=== PATIENT | male | born 1935 | race Caucasian/White ===

== ENCOUNTER 2017-05-22 07:06 | Day surgery (SDC) ==
[2017-05-22] MEDS: LIDOCAINE 1% 20 ML MDV ID ONE (08:05)
[2017-05-22] MEDS ORDERED: DIPRIVAN 20 ML VIAL IVP ONE (08:30)
[2017-05-22] MEDS ORDERED: VERSED ONE (08:30)
[2017-05-22 14:23] VITALS: BP 156/70; TEMP 97.7
--- NOTE | 2017-05-22 15:11 | OP ---
INDICATIONS FOR PROCEDURE: 82-year-old gentleman presents for colonoscopy examination. He has a past history of adenomatous polyps with his last colonoscopy three years ago. MEDICATIONS: SEE ANESTHESIA NOTES. PROCEDURE: COLONOSCOPY, SNARE POLYPECTOMY. REPORT: The risks, benefits, alternatives and limitations were discussed in detail with the patient. Informed consent was obtained. After adequate sedation was achieved, a digital rectal exam revealed good tone, no masses. The colonoscope was introduced into the rectum and advanced under direct visual guidance to the ileocolonic anastomosis. This appeared unremarkable. I then slowly withdrew the scope in a circumferential manner examining the mucosa quite carefully. I looked on the proximal and distal side of folds and flexures as best as possible. I was able to retroflex the scope in the right colon and left colon to increase visualization. At 32 cm there was a semi sessile polyp, about 7 mm in size. I was able to remove this by snare technique. No other abnormalities were noted throughout the remaining colon. The prep was good. The withdrawal time was 9 minutes and 14 seconds. The patient tolerated the procedure well with stable vital signs and pulse oximetry throughout. IMPRESSION: 1. Single polyp removed from the sigmoid area. RECOMMENDATIONS: 1. High fiber diet. 2. Office visit as needed. 3. Await polyp pathology. If everything is benign, I recommend repeat colonoscopy examination again in three years based on his past history of polyps and finding this polyp; sooner if there are any signs or symptoms to indicate otherwise. CC: DR. ANTHONY LINARES
== END 2017-05-22 10:15 | disposition home or self-care (01) ==
LOC: SURG 07:06
PROVIDERS: ATTEND Internal Medicine Gastroenterology
DX: Z09 Encounter for follow-up examination after completed treatment for conditions other than malignant neoplasm (principal); Z86.010 Personal history of colon polyps; D12.5 Benign neoplasm of sigmoid colon

== ENCOUNTER 2019-04-30 09:50 | Outpatient (POV) | END 2019-04-30 17:00 | LOC: OUTPT 09:50 | PROVIDERS: ATTEND Otolaryngology | DX: R42 Dizziness and giddiness (principal) | CPT/HCPCS: 92557; 92567 ==

== ENCOUNTER 2021-05-15 22:04 | Inpatient (IN) ==
[2021-05-15 22:14] VITALS: BMI 25.4
[2021-05-15 22:34] LABS: BASOPHILS % (AUTO) 0.6 % (0.0-3.0); EOSINOPHILS # (AUTO) 0.3 K/ul (0.0-0.7); EOSINOPHILS % (AUTO) 4.3 % (0.0-7.0); HEMATOCRIT 40.9 % (42.0-52.0); HEMOGLOBIN 14.3 g/dl (14.0-18.0); IMMATURE GRANULOCYTE % (AUTO) 0.1 % (0.0-5.0); LYMPHOCYTES # (AUTO) 2.8 K/uL (0.60-3.4); LYMPHOCYTES % (AUTO) 41.8 (10.0-50.0); MEAN CORPUSCULAR HEMOGLOBIN 30.4 pg (27.0-31.0); MONOCYTES # (AUTO) 0.7 K/uL (0.4-2.0); MONOCYTES % (AUTO) 9.9 (0-10); NEUTROPHILS # (AUTO) 2.9 K/ul (2.0-6.9); NEUTROPHILS % (AUTO) 43.3 % (42.2-75.2); PLATELET COUNT 170 10^3/uL (140-440); RDW COEFFICIENT OF VARIATION 12.8 % (11.6-14.8); WHITE BLOOD COUNT 6.68 K/ul (4.2-10.2)
--- NOTE | 2021-05-15 22:51 | ED.PDOC ---
General ED Provider: Dr. ANA PAULA CARRASQUILLO Chief Complaint: Palpitations Stated Complaint: my heart is beating irregular and im tired Time Seen by Provider: 05/15/21 22:25 Mode of Arrival: Walk-In Information Source: Patient Exam Limitations: No limitations Primary Care Provider: TIFFANIE OCONNOR Nursing and Triage Documentation Reviewed and Agree: Yes Does patient meet sepsis criteria?: No System Inflammatory Response Syndrome: Not Applicable Sepsis Protocol: For patient's 13 years and over: Temp is 96.8 and below OR 101 and greater Pulse >90 BPM Resp >20/minute Acutely Altered Mental Status Are patient's symptoms suggestive of a new infection, such as: -Pneumonia -Skin, Soft Tissue -Endocarditis -UTI -Bone, Joint Infection -Implantable Device -Acute Abdominal Infection -Wound Infection -Meningitis -Blood Stream Catheter Infection -Unknown Cardiovascular Complaint Exam Palpitations Complaint/Exam Onset/Duration: 2-3 days Symptoms Are: Still present Timing: Intermittent Initial Severity: Mild Current Severity: Mild Character: Reports Irregular and Pounding Aggravating: Reports None Alleviating: Reports None Associated Signs and Symptoms: Denies Lightheadedness, Dizziness, Syncope, Chest pain, Shortness of breath, Diaphoresis, Nausea or Vomiting Thyroid Exam: Normal Differential Diagnoses: Cardiomyopathy and CAD Quality Indicator For Non-Traumatic Chest Pain/Syncope: EKG Performed Review of Systems Review Of Systems Constitutional: Reports No symptoms Eyes: Reports No symptoms Ears, Nose, Mouth, Throat: Reports No symptoms Respiratory: Reports No symptoms Cardiac: Reports Palpitations GI: Reports No symptoms : Reports No symptoms Musculoskeletal: Reports No symptoms Skin: Reports No symptoms Neurological: Reports No symptoms Endocrine: Reports No symptoms Hematologic/Lymphatic: Reports No symptoms All Other Systems: Reviewed and Negative [facility] Medical History Gastroesophageal reflux disease Hyperlipidemia Hypertension Surgical History (Updated 04/30/19 @ 12:10 by ZEYAD RICE LPN) Large intestines Physical Exam Physical Exam Appearance: Reports Well-appearing Ill-appearing: Not Applicable Pain Distress: Not Applicable Eyes: Reports SANDRA, EOMI and Conjunctiva clear ENT: Reports Ears normal, Nose normal and Oropharynx normal Neck: Supple Respiratory: Reports Airway patent, Breath sounds clear, Breath sounds equal and Breath sounds diminished Cardiovascular: Reports RRR, Pulses normal and No rub GI/: Reports Soft, Nontender, No masses and Bowel sounds normal Musculoskeletal: Reports Normal strength, ROM intact, No edema and No calf tenderness Skin: Reports Warm, Dry and Normal color Neurological: Reports Sensation intact, Motor intact, Reflexes intact, Cranial nerves intact, Alert and Oriented Psychiatric: Reports Affect appropriate, Mood appropriate and Anxious Physician Notification Case Discussed Physician Notified: dr oconnor Time of Notification: 23:51 Critical Care Note Critical Care Note Total Critical Care Time (mins): 15 Course Course Hematology/Chemistry: 05/15/21 22:30 05/15/21 22:30 Orders, Labs, Meds: Lab Review 05/15/21 05/15/21 05/15/21 22:30 22:30 22:30 WBC 6.68 RBC 4.70 Hgb 14.3 Hct 40.9 L MCV 87.0 MCH 30.4 MCHC 35.0 RDW Coeff of Kassandra 12.8 Plt Count 170 Immature Gran % (Auto) 0.1 Neut % (Auto) 43.3 Lymph % (Auto) 41.8 [place] % (Auto) 9.9 Eos % (Auto) 4.3 Baso % (Auto) 0.6 Neut # (Auto) 2.9 Lymph # (Auto) 2.8 [place] # (Auto) 0.7 Eos # (Auto) 0.3 Baso # (Auto) 0.0 Immature Gran # (Auto) 0.0 Sodium 141.5 Potassium 3.51 Chloride 103.8 Carbon Dioxide 27.4 Anion Gap 13.81 BUN 20.5 H Creatinine 1.31 H Estimated GFR (MDRD) 52.00 BUN/Creatinine Ratio 15.64 Glucose 140.3 H Calcium 9.44 Magnesium 2.22 Total Bilirubin 0.72 AST 29.7 ALT 15.4 Alkaline Phosphatase 86.4 Total Creatine Kinase 80.6 Troponin I 0.030 Total Protein 6.93 Albumin 4.14 Globulin 2.79 Albumin/Globulin Ratio 1.48 TSH 3.710 Free T4 1.49 Adenovirus (PCR) B. pertussis DNA (PCR) B.parapertussis DNA PCR C. pneumoniae DNA (PCR) Coronavirus OC43 (PCR) Coronavirus HKU1 (PCR) Coronavirus 229E (PCR) Coronavirus NL63 (PCR) Human Metapneumovir PCR Influenza Type A (PCR) Influenza B (RT-PCR) M. pneumoniae (PCR) Parainfluenza 1 (PCR) Parainfluenza 2 (PCR) Parainfluenza 3 (PCR) Parainfluenza 4 (PCR) RSV (PCR) Entero/Rhino (PCR) SARS-CoV-2 (PCR) 05/15/21 22:55 WBC RBC Hgb Hct MCV MCH MCHC RDW Coeff of Kassandra Plt Count Immature Gran % (Auto) Neut % (Auto) Lymph % (Auto) [place] % (Auto) Eos % (Auto) Baso % (Auto) Neut # (Auto) Lymph # (Auto) [place] # (Auto) Eos # (Auto) Baso # (Auto) Immature Gran # (Auto) Sodium Potassium Chloride Carbon Dioxide Anion Gap BUN Creatinine Estimated GFR (MDRD) BUN/Creatinine Ratio Glucose Calcium Magnesium Total Bilirubin AST ALT Alkaline Phosphatase Total Creatine Kinase Troponin I Total Protein Albumin Globulin Albumin/Globulin Ratio TSH Free T4 Adenovirus (PCR) Not detected B. pertussis DNA (PCR) Not detected B.parapertussis DNA PCR Not detected C. pneumoniae DNA (PCR) Not detected Coronavirus OC43 (PCR) Not detected Coronavirus HKU1 (PCR) Not detected Coronavirus 229E (PCR) Not detected Coronavirus NL63 (PCR) Not detected Human Metapneumovir PCR Not detected Influenza Type A (PCR) Not detected Influenza B (RT-PCR) Not detected M. pneumoniae (PCR) Not detected Parainfluenza 1 (PCR) Not detected Parainfluenza 2 (PCR) Not detected Parainfluenza 3 (PCR) Not detected Parainfluenza 4 (PCR) Not detected RSV (PCR) Not detected Entero/Rhino (PCR) Not detected SARS-CoV-2 (PCR) Not detected Orders Category Date Time Status EKG-(ED ONLY) Stat CARDIO 05/15/21 22:23 Completed ED LEASING COORDINATOR APPLIED .ONCE EMERGENCY 05/15/21 22:23 Active CBC W/ AUTO DIFF Stat LAB 05/15/21 22:30 Completed COMPREHENSIVE METABOLIC PANEL Stat LAB 05/15/21 22:30 Completed CREATINE KINASE Stat LAB 05/15/21 22:30 Completed FREE T4 (FREE THYROXINE) Stat LAB 05/15/21 22:30 Completed MAGNESIUM Stat LAB 05/15/21 22:30 Completed RESPIRATORY PANEL 2.1 (PCR) Stat LAB 05/15/21 22:55 Completed THYROID STIMULATING HORMONE Stat LAB 05/15/21 22:30 Completed TROPONIN I Stat LAB 05/15/21 22:30 Completed CHEST, 1V AP ONLY Stat RADS 05/15/21 22:28 Completed Vital Signs: Temp Pulse Resp BP Pulse Ox 05/15/21 22:05 98.3 F 76 18 174/65 H 98 ILEANA Risk Score ILEANA Risk Score: Risk Score Odds of by 30D 0 0.1 (0.1-0.2) 1 0.3 (0.2-0.3) 2 0.4 (0.3-0.5) 3 0.7 (0.6-0.9) 4 1.2 (1.0-1.5) 5 2.2 (1.9-2.6) 6 3.0 (2.5-3.6) 7 4.8 (3.8-6.1) Discharge Plan Discharge Patient Disposition: ADMITTED INPATIENT Discharge Problem: Palpitations Prescriptions: No Action VALIUM 2 MG tablet 2 mg PO BID PRN (Reason: Dizziness) RF: 0 atorvastatin [Lipitor] 20 MG tablet 40 mg PO DAILY RF: 0 aspirin 81 MG tablet,delayed release (DR/EC) 1 tab PO DAILY RF: 0 bisoprolol fumarate 5 MG tablet 2.5 mg PO DAILY RF: 0 amlodipine [Norvasc] 10 MG tablet 1 tab PO DAILY RF: 0 meclizine 25 MG tablet 25 mg PO BID RF: 0 ED Provider: ANA PAULA MARIO Condition: Good Physician Progress Note: []
[2021-05-15 22:53] LABS: ALANINE AMINOTRANSFERASE 15.4 U/L (0-50); ALBUMIN 4.14 g/dL (3.5-5.0); ALKALINE PHOSPHATASE 86.4 U/L (56-119); ASPARTATE AMINO TRANSFERASE 29.7 U/L (17-59); BILIRUBIN,TOTAL 0.72 mg/dL (0.2-1.3); BLOOD UREA NITROGEN 20.5 mg/dL (9-20); CALCIUM 9.44 mg/dL (8.4-10.2); CARBON DIOXIDE 27.4 mmol/L (22-30.0); CHLORIDE 103.8 mmol/L (98-107); CREATINE KINASE 80.6 U/L (55-170); CREATININE 1.31 mg/dL (0.60-1.10); GLUCOSE 140.3 mg/dL (74-106); MAGNESIUM 2.22 mg/dL (1.6-2.3); POTASSIUM 3.51 mmol/L (3.5-5.1); SODIUM 141.5 mmol/L (134.5-145); TOTAL PROTEIN 6.93 g/dL (6.3-8.2)
[2021-05-15 22:59] LABS: BORDETELLA PARAPERTUSSIS (PCR) NOT DETECTED (NOT DETECT); BORDETELLA PERTUSSIS (PCR) NOT DETECTED (NOT DETECT); CHLAMYDIA PNEUMONIAE (PCR) NOT DETECTED (NOT DETECT); CORONAVIRUS 229E (PCR) NOT DETECTED (NOT DETECT); CORONAVIRUS HKU1 (PCR) NOT DETECTED (NOT DETECT); CORONAVIRUS NL63 (PCR) NOT DETECTED (NOT DETECT); CORONAVIRUS OC43 (PCR) NOT DETECTED (NOT DETECT); HUMAN METAPNEUMOVIRUS (PCR) NOT DETECTED (NOT DETECT); HUMAN RHINOVIRUS/ENTEROV (PCR) NOT DETECTED (NOT DETECT); INFLUENZA B (PCR) NOT DETECTED (NOT DETECT); MYCOPLASMA PNEUMONIAE (PCR) NOT DETECTED (NOT DETECT); PARAINFLUENZA VIRUS 1 (PCR) NOT DETECTED (NOT DETECT); PARAINFLUENZA VIRUS 2 (PCR) NOT DETECTED (NOT DETECT); PARAINFLUENZA VIRUS 3 (PCR) NOT DETECTED (NOT DETECT); PARAINFLUENZA VIRUS 4 (PCR) NOT DETECTED (NOT DETECT); RESPIRATORY SYNCYTIAL V (PCR) NOT DETECTED (NOT DETECT); SARS_COV_2 (PCR) NOT DETECTED (NOT DETECT)
[2021-05-15 23:04] LABS: TROPONIN I 0.03 ng/ml (0.0000-0.120)
--- NOTE | 2021-05-15 23:05 | DI ---
EXAM: Chest, one-view HISTORY: Palpitations FINDINGS: Cardiac and mediastinal contours are normal. Pulmonary vasculature is normal. Senescent interstitial coarsening without focal infiltrate. Granulomatous calcification on the left. Bony tho rax is unremarkable. IMPRESSION: No acute cardiopulmonary disease
[2021-05-15 23:23] LABS: THYROID STIMULATING HORMONE 3.71 uIU/L (0.465-4.68)
[2021-05-15 23:43] LABS: ADENOVIRUS (PCR) NOT DETECTED (NOT DETECT)
[2021-05-15] MEDS ORDERED: VALIUM PO PRN (23:58)
[2021-05-16] MEDS ORDERED: NORVASC PO STA (01:19)
[2021-05-16 05:05] LABS: BASOPHILS % (AUTO) 0.7 % (0.0-3.0); EOSINOPHILS # (AUTO) 0.2 K/ul (0.0-0.7); EOSINOPHILS % (AUTO) 3.5 % (0.0-7.0); HEMATOCRIT 38.9 % (42.0-52.0); HEMOGLOBIN 13.3 g/dl (14.0-18.0); IMMATURE GRANULOCYTE % (AUTO) 0.5 % (0.0-5.0); LYMPHOCYTES # (AUTO) 1.9 K/uL (0.60-3.4); LYMPHOCYTES % (AUTO) 31.4 (10.0-50.0); MEAN CORPUSCULAR HEMOGLOBIN 30.1 pg (27.0-31.0); MEAN CORPUSCULAR HGB CONC 34.2 (31.8-35.4); MONOCYTES # (AUTO) 0.7 K/uL (0.4-2.0); MONOCYTES % (AUTO) 12.2 (0-10); NEUTROPHILS # (AUTO) 3.2 K/ul (2.0-6.9); NEUTROPHILS % (AUTO) 51.7 % (42.2-75.2); PLATELET COUNT 165 10^3/uL (140-440); RED BLOOD COUNT 4.42 10^6/ul (4.70-6.10); WHITE BLOOD COUNT 6.08 K/ul (4.2-10.2)
[2021-05-16 05:18] LABS: ALANINE AMINOTRANSFERASE 13.9 U/L (0-50); ALBUMIN 3.82 g/dL (3.5-5.0); ALKALINE PHOSPHATASE 69.8 U/L (56-119); ASPARTATE AMINO TRANSFERASE 31.3 U/L (17-59); BILIRUBIN,TOTAL 0.61 mg/dL (0.2-1.3); BLOOD UREA NITROGEN 18.2 mg/dL (9-20); CALCIUM 8.95 mg/dL (8.4-10.2); CARBON DIOXIDE 28.1 mmol/L (22-30.0); CHLORIDE 104.9 mmol/L (98-107); CREATINE KINASE 65.6 U/L (55-170); CREATININE 1.18 mg/dL (0.60-1.10); GLUCOSE 111.7 mg/dL (74-106); POTASSIUM 3.63 mmol/L (3.5-5.1); SODIUM 139.5 mmol/L (134.5-145); TOTAL PROTEIN 6.63 g/dL (6.3-8.2)
[2021-05-16 05:29] LABS: TROPONIN I 0.074 ng/ml (0.0000-0.120)
[2021-05-16] MEDS: ANTIVERT PO SCH ×2 (08:47→20:46)
[2021-05-16] MEDS: LIPITOR PO SCH (08:47)
[2021-05-16] MEDS: ASPIRIN EC PO SCH (08:47)
[2021-05-16] MEDS: LOVENOX SUBCUT SCH (08:48)
[2021-05-16] MEDS ORDERED: ZEBETA PO SCH (09:00)
[2021-05-16] MEDS ORDERED: NORVASC PO SCH ×2 (09:00→21:00)
[2021-05-16 14:06] LABS: ERYTHROCYTE SEDIMENTATION RATE 11 mm/hr (0-15)
[2021-05-16 14:22] LABS: CREATINE KINASE 56.1 U/L (55-170)
[2021-05-16 14:35] LABS: TROPONIN I 0.039 ng/ml (0.0000-0.120)
[2021-05-16 15:08] LABS: BILIRUBIN,URINE Negative (NEGATIVE); CLARITY,URINE Clear (CLEAR); COLOR,URINE Yellow (YELLOW); GLUCOSE, URINE (UA) Negative (NEGATIVE); KETONES,URINE Negative (NEGATIVE); LEUKOCYTE ESTERASE ,URINE Negative (NEGATIVE); NITRITE,URINE Negative (NEGATIVE); PROTEIN,URINE Negative (NEGATIVE); URINE, BLOOD Negative (NEGATIVE); UROBILINOGEN,URINE 0.2 (0.2)
[2021-05-17 04:34] LABS: BASOPHILS % (AUTO) 0.6 % (0.0-3.0); EOSINOPHILS # (AUTO) 0.3 K/ul (0.0-0.7); EOSINOPHILS % (AUTO) 4.4 % (0.0-7.0); HEMATOCRIT 38.9 % (42.0-52.0); HEMOGLOBIN 13.3 g/dl (14.0-18.0); IMMATURE GRANULOCYTE % (AUTO) 0.3 % (0.0-5.0); LYMPHOCYTES # (AUTO) 2.2 K/uL (0.60-3.4); LYMPHOCYTES % (AUTO) 34.1 (10.0-50.0); MEAN CORPUSCULAR HGB CONC 34.2 (31.8-35.4); MEAN CORPUSCULAR VOLUME 87.8 fl (80.0-94.0); MONOCYTES # (AUTO) 0.8 K/uL (0.4-2.0); MONOCYTES % (AUTO) 11.8 (0-10); NEUTROPHILS # (AUTO) 3.2 K/ul (2.0-6.9); NEUTROPHILS % (AUTO) 48.8 % (42.2-75.2); PLATELET COUNT 173 10^3/uL (140-440); RED BLOOD COUNT 4.43 10^6/ul (4.70-6.10); WHITE BLOOD COUNT 6.54 K/ul (4.2-10.2)
[2021-05-17 04:49] LABS: ALANINE AMINOTRANSFERASE 13.5 U/L (0-50); ALBUMIN 3.69 g/dL (3.5-5.0); ALKALINE PHOSPHATASE 65.7 U/L (56-119); ASPARTATE AMINO TRANSFERASE 35.6 U/L (17-59); BILIRUBIN,TOTAL 0.9 mg/dL (0.2-1.3); BLOOD UREA NITROGEN 18.4 mg/dL (9-20); CALCIUM 9.07 mg/dL (8.4-10.2); CARBON DIOXIDE 26.5 mmol/L (22-30.0); CHLORIDE 106.9 mmol/L (98-107); CREATININE 1.21 mg/dL (0.60-1.10); GLUCOSE 99.1 mg/dL (74-106); POTASSIUM 3.59 mmol/L (3.5-5.1); SODIUM 139.4 mmol/L (134.5-145); TOTAL PROTEIN 6.32 g/dL (6.3-8.2)
[2021-05-17] MEDS ORDERED: SYNTHROID PO SCH (06:30)
--- NOTE | 2021-05-17 09:59 | PCM.PROG ---
Attending Provider: ATTENDING PROVIDER: Dr. TIFFANIE CRUZ This patient is seen with Neelima Alvarenga, Nurse Practitioner. DATE OF SERVICE: 05/17/21 SUBJECTIVE: This 86 year old /WHITE M was hospitalized 05/16/21. The patient is resting comfortably. Awaiting CT scan after Holter removed. Bradycardia improved after discontinuation of Zebeta. No significant pauses. REVIEW OF SYSTEMS: CONSTITUTIONAL: Generalized weakness, fatigue. No night sweats. No malaise, lethargy. No fever or chills. HEENT: Eyes: No visual changes. No eye pain. No eye discharge. ENT: No runny nos e. No epistaxis. No sinus pain. No odynophagia. No congestion. RESPIRATORY: No cough, no congestion. No hemoptysis. No shortness of breath. CARDIOVASCULAR: No angina symptoms. No CHF symptoms. No atypical chest pain for CAD. No palpitations. No orthopnea.. GASTROINTESTINAL: No abdominal pain. No nausea or vomiting. No diarrhea or constipation. No hematemesis. No hematochezia. GENITOURINARY: No urgency. No frequency. No dysuria. No hematuria. No obstructive symptoms. No discharge. No pain. No significant abnormal bleeding. MUSCULOSKELETAL: No musculoskeletal pain; no joint swelling. NEUROLOGICAL: Awake, alert, oriented to time, place and person. No headache. No neck pain. No syncope. No seizures. No dizziness. PSYCHIATRIC: Not anxious. No depression. No suicidal thoughts. No homicidal tho ughts. SKIN: No rash. No lesions. No wounds. ENDOCRINE: Weight loss. HEMATOLOGIC/LYMPHATIC: No anemia. No purpura. No petechiae. No prolonged or excessive bleeding. No palpable lymph nodes. PHYSICAL EXAMINATION: GENERAL: The patient is awake, alert and oriented, lying/sitting in bed in no distress. VITAL SIGNS: Temperature 98.7 F, Pulse 49, Respiratory Rate 18, BP 125/57, Pulse Ox 95% HEENT: Head normocephalic, atraumatic. Eyes: Extraocular muscles are intact. Pupils are equal, round and reactive to light and accommodation. Ears: No lesions. Nose appeared normal. Throat: No exudate or erythema. NECK: Supple. No JVD, no carotid bruit. No lymphadenopathy or thyromegaly. LUNGS: Diminished breath sounds. Clear to auscultation. Percussion note normal. Chest symmetrical. HEART: S1, S2, no S3. Grade 1 murmur. No cyanosis or clubbing. No ascites. Pulses: Dorsalis pedis and posterior tibial pulses +1 to +2 both sides. ABDOMEN: Soft. Non-tender. Bowel sounds active. No CVA tenderness. No mass felt. EXTREMITIES: No edema. Full range of motion of all extremities, equal. NEUROLOGIC: No focal deficit. Cranial nerves II through XII are grossly intact. No headache. No double vision. SKIN: Not dry. Intact. Turgor-normal. LYMPHATIC: No palpable lymph nodes/no lymphedema. MUSCULOSKELETAL: Normal joints with no swelling. Muscle tone is normal. LAB REVIEW: 05/17/21 04:20 05/17/21 04:20 05/17/21 04:20: Sodium 139.4, Potassium 3.59, Chloride 106.9, Carbon Dioxide 26.5, Anion Gap 9.59, BUN 18.4, Creatinine 1.21 H, Estimated GFR (MDRD) 57.00, BUN/Creatinine Ratio 15.20, Glucose 99.1, Calcium 9.07, Total Bilirubin 0.90, AST 35.6, ALT 13.5, Alkaline Phosphatase 65.7, Total Protein 6.32, Albumin 3.69, Globulin 2.63, Albumin/Globulin Ratio 1.40 05/17/21 04:20: WBC 6.54, RBC 4.43 L, Hgb 13.3 L, Hct 38.9 L, MCV 87.8, MCH 30.0, MCHC 34.2, RDW Coeff of Kassandra 13.0, Plt Count 173, Immature Gran % (Auto) 0. 3, Neut % (Auto) 48.8, Lymph % (Auto) 34.1, [place] % (Auto) 11.8 H, Eos % (Auto) 4.4, Baso % (Auto) 0.6, Neut # (Auto) 3.2, Lymph # (Auto) 2.2, [place] # (Auto) 0.8, Eos # (Auto) 0.3, Baso # (Auto) 0.0, Immature Gran # (Auto) 0.0 05/16/21 14:45: Urine Color Yellow, Urine Clarity Clear, Urine pH 7.0, Ur Specific [place] 1.020, Urine Protein Negative, Urine Glucose (UA) Negative, Urine Ketones Negative, Urine Blood Negative, Urine Nitrite Negative, Urine Bilirubin Negative, Urine Urobilinogen 0.2, Ur Leukocyte Esterase Negative 05/16/21 14:06: Total Creatine Kinase 56.1, Troponin I 0.039 05/16/21 04:18: Vitamin B12 189 L 05/16/21 04:18: ESR 11 ASSESSMENT: Please see below. 1. Generalized weakness, fatigue. 2. Weight loss. 3. PVCs. PLAN: 1. Remove Holter today. 2. CT abdomen and pelvis today. 3. Will continue to monitor. Plan and coordination of the patient's care discussed in the presence of Cell Room Supervisor and nurse. CONDITION: Stable SCRIBED BY: ULISES [place] [employer] Hand scribed while in presence of service performed by Dr. Cruz/Neelima Alvarenga APRN on 05/17/21 ([id number])
--- NOTE | 2021-05-17 13:22 | HP ---
DATE OF SERVICE: 05/16/21 REASON FOR HOSPITALIZATION: Palpitations, weakness. HISTORY OF PRESENT ILLNESS: 86-year-old white male was brought to the emergency room by family because of having palpitation and weakness, two to three days duration. Mainly the patient complains of weakness and somewhat loss of appetite. PAST MEDICAL HISTORY: Hypertension Dyslipidemia Dizziness with vestibular dysfunction History of aortic regurgitation History of mitral regurgitation History of systolic murmur REVIEW OF SYSTEMS: CONSTITUTIONAL: Fatigue and weakness. No night sweats. No malaise, lethargy. No fever or chills. HEENT: Eyes: No visual changes. No eye pain. No eye discharge. ENT: No runny nose. No epistaxis. No sinus pain. No sore throat. No odynophagia. No ear pain. No congestion. RESPIRATORY: No cough, no congestion. No hemoptysis. No shortness of breath. CARDIOVASCULAR: Palpitations. He feels heart skipping. No angina symptoms. Denies chest pain. No PND. No orthopnea. GASTROINTESTINAL: Appetite has been poorer than usual with some weight loss, no melena, no hematemesis. No nausea or vomiting. No diarrhea or constipation. GENITOURINARY: No urgency. No frequency. No dysuria. No hematuria. No obstructive symptoms. No discharge. No pain. No significant abnormal bleeding. MUSCULOSKELETAL: Weakness and pains at times. No joint swelling. NEUROLOGICAL: No headache. No neck pain. No syncope. No seizures. No dizziness. PSYCHIATRIC: Not anxious. No depression. No suicidal thoughts. No homicidal thoughts. SKIN: No rash. No lesions. No wounds. ENDOCRINE: No unexplained weight loss. No weight gain. HEMATOLOGIC/LYMPHATIC: No anemia. No purpura. No petechiae. No prolonged or excessive bleeding. No palpable lymph nodes. PERSONAL/FAMILY/SOCIAL HISTORY: The patient is driving a car, does all activity of daily living. He is independent. Nonsmoker. No alcohol abuse. He lives with his . He is a Full Code. MEDICATIONS: Amlodipine 10 mg p.o. daily Aspirin 81 mg p.o. daily Atorvastatin 20 mg p.o. daily Bisoprolol 5 mg tablet daily Meclizine 25 mg p.o. b.i.d. p.r.n. Valium 2 mg p.o. twice a day ALLERGIES: NKDA PHYSICAL EXAMINATION: GENERAL: The patient is oriented to time, place and person. VITAL SIGNS: Temperature 98, pulse 50, respiratory rate 18, BP 146/66, pulse ox 97%. HEENT: Head normocephalic, atraumatic. Eyes: Extraocular muscles are intact. Pupils are equal, round and reactive to light and accommodation. Ears: No lesions. Nose appeared normal. Throat: No exudate or erythema. NECK: Supple. No JVD, no carotid bruit. No lymphadenopathy or thyromegaly. LUNGS: Decreased breath sounds but clear to auscultation. Percussion note normal. Chest symmetrical. HEART: S1, S2, Grade II/ systolic ejection murmur. No cyanosis or clubbing. No ascites. Pulses: Dorsalis pedis and posterior tibial pulses +2 bilaterally. ABDOMEN: Soft. Nontender. Bowel sounds active. No CVA tenderness. No mass felt. EXTREMITIES: No edema. Full range of motion of all extremities, equal. NEUROLOGIC: No focal deficit. Cranial nerves II through XII are grossly intact. No headache, no double vision or headache. SKIN: Not dry. Intact. Turgor - normal. LYMPHATIC: No palpable lymph nodes/no lymphedema. MUSCULOSKELETAL: Normal joints with no swelling. Muscle tone is normal. LABS: Hemoglobin 13, hematocrit 38, WBC 6,000, normal differential. Creatinine 1.1, BUN 18, potassium 3.6, glucose 111. Chest x-ray negative. ASSESSMENT: 1. Palpitation/dizziness. EKG shows sinus rhythm with 1st degree AV block. The first EKG showed PVCs. Telemetry strips shows bradycardia with rate 40 to 45 at times with PVCs, no V tach, couplets noted. 2. Hypertension, systolic. 3. Weakness, fatigue could be related to viral syndrome, Covid negative. Could be combination of PVCs and bradycardia. The patient's hernandez rhythm is able to support his blood pressure and usually more than 130 systolic. 4. History of hypertension. 5. History of dyslipidemia. 6. Dizziness, vestibular dysfunction. PLAN: 1. Discontinue Bisoprolol. 2. Continue Amlodipine. 3. Holter monitor. 4. Echocardiogram that was done this morning which showed LVH borderline with LA cavity enlargement 4.5 cm with normal ejection fraction. The patient has maybe mild aortic stenosis. Leaflet separation noted which was 1.4 cm. Aortic regurgitation, mitral regurgitation both mild noted. Will do CT scan of the abdomen and pelvis for weight loss. 5. UA to be done to make sure that the patient doesn't have any UTI. The patient had recent history of urinary tract infection/prostatitis. 6. Continue to monitor the patient's rhythm with telemetry. 7. Will see what discontinuation of Bisoprolol does in case the patient has bradycardia, dependent PVC's. No need to start any antiarrhythmics at the present time. Will see the frequency of PVCs. We are doing a stress test to see what the response is with exercise in addition to his bradycardia and PVCs. CONDITION: Stable. TIME SPENT: More than 70 minutes. MTDD
[2021-05-17] MEDS: ASPIRIN EC PO SCH (13:44)
[2021-05-17] MEDS: LIPITOR PO SCH (13:45)
[2021-05-17] MEDS: LOVENOX SUBCUT SCH (13:50)
[2021-05-17] MEDS: ANTIVERT PO SCH (13:51)
--- NOTE | 2021-05-17 13:59 | CT ---
EXAM: CT abdomen pelvis with and without contrast HISTORY: Weight loss COMPARISON: None TECHNIQUE: CT abdomen pelvis performed with and without intravenous contrast. Coronal and sagittal reformatted images obtained. FINDINGS: Granulomatous calcification lower chest. No free air. No acute abnormalities of the bone s. Degenerative change in the spine. The heart normal in size. Granulomas calcification in the gary er. Liver otherwise unremarkable. There is a gallstone. Pancreas unremarkable. Spleen unremarkabl e. Adrenals unremarkable. The left renal cyst. Small one - 2 mm right renal calculus. No hydronep hrosis. No calculi visualized in normal course of the ureters. The bladder only mildly distended an d poorly evaluated. Prostate moderately enlarged, indenting the bladder base. Aorta normal in calib er. Extensive atherosclerosis. Small hiatal hernia. No dilated loops small bowel. Status post rig ht hemicolectomy. No lymphadenopathy or ascites. IMPRESSION: 1. No acute abnormality identified in the abdomen or pelvis. 2. Cholelithiasis. 3. Right nephrolithiasis. No hydronephrosis. 4. Enlarged prostate. 5. Small hiatal hernia All CT scans are performed using dose optimization techniques as appropriate to the performed exam an d include at least one of the following: Automated exposure control, adjustment of the mA and/or kV according t o size, and the use of iterative reconstruction technique.
[2021-05-17 14:19] VITALS: BP 142/60; TEMP 98.3
--- NOTE | 2021-05-18 14:22 | ECHO2D ---
Date of Exam: 05/16/2021 Ordering Physician: DR. TIFFANIE CRUZ Room #: 110 Reason for Echo: PALPITATIONS, HTN, PVC'S M-Mode Normal Adult Results LV Dimensions Normal Adult Results AoV Opening excursions >1.6 1.4 LVEDD-base- 3.5-5.8 4.0 Ao root dimensions 2.0-3.7 3.1 LVESD-base- 3.1-4.6 L. Atrium dimensions 1.9-3.8 4.5 Post. Wall thickness 0.8-1.1 1.2 IV septum (thickness) 0.7-1.2 1.3 Post. Wall excursion 0.72-1.3 NORMAL Septal motion NORMAL Systolic motion R. Ventricular cavity 1.5-2.0 NORMAL LVEF 60% 68% Paradoxical septal wall motion NORMAL 2-D : 2-D M Mode Echocardiogram was performed using apical four chamber and left parasternal long and short axis views. Mitral, tricuspid and aortic valves appear to be normal. Contractility of the left ventricle seems to be normal, so is the cavity size. Enlarged left atrial cavity size. Aortic root appears to be normal. There is no pericardial effusion. There is no thrombus noted in the left ventricle or left atrial cavity. CALCIFIC AORTIC LEAFLET--MAYBE MILD AORTIC STENOSIS M-MODE: MV: NORMAL AV: CALCIFIC AORTIC LEAFLETS--MAYBE MILD AORTIC STENOSIS TV: NORMAL PV: NORMAL CHAMBER SIZE: ENLARGED LEFT ATRIAL CAVITY WALL MOTION: NORMAL PERICARDIUM: NORMAL INTERPRETATION: 1. LEFT VENTRICULAR HYPERTROPHY WITH ENLARGED LEFT ATRIAL CAVITY 2. CALCIFIC AORTIC VALVE LEAFLETS WITH MAYBE MILD AORTIC STENOSIS 3. NORMAL LEFT VENTRICLE CONTRACTILITY--EJECTION FRACTION 67% 4. NORMAL LEFT VENTRICLE SIZE MTDD
--- NOTE | 2021-05-19 13:47 | HOLTER ---
PATIENT INFORMATION AND COMMENTS Attending Physician: DR. TIFFANIE CRUZ Indications: PALPITATIONS __ Patient Medications: NORVASC, ASA, ATORVASTATIN, DIAZEPAM, ENOXAPARIN, MECLIZINE __ Pre-procedure Summary: Protocol: Standard Heart Rate Started: 05/16/20211216 Minimum: 42 BPM Weight: 162 LBS Ended: 05/17/20211216 Maximum: 112 BPM Height: 67" Duration: 24 HOURS Average: 50 BPM _ INTERPRETATIONS/OBSERVATIONS: 1. BASIC RHYTHM: SINUS RATE 42 BPM TO 110 BPM, AVERAGE 50 BPM 2. PVC'S --INFREQUENT, NO COUPLETS OR SALVOS 3. PAC'S --FREQUENT, 6% OF BEATS SCANNED--3 TO 4 BEAT PAT'S WITH RATE 110 BPM NOTED--FEW OF THEM 4. NO ST- T WAVE CHANGES FROM BASELINE 5. ACTIVITY LOG BLANK TOOK ZEBETA 2.5 MG ON 05/16/2021 A.M. MTDD
--- NOTE | 2021-05-20 11:30 | DS ---
DATE OF SERVICE: 05/17/21 FINAL DIAGNOSIS: 1. PALPITATIONS LIKELY FROM PVC'S. 2. FATIGUE, A COMBINATIION OF LIKELY VIRAL SYNDROME AND/OR AGING PROCESS AND/OR PVC'S. 3. HISTORY OF HYPERTENSION. 4. LVH BY ECHO WITH ENLARGED LA CAVITY 4.5 CM, TRACE TO MILD AR AND MR, MAYBE MILD AORTIC STENOSIS. 5. DYSLIPIDEMIA. 6. VERTIGO WITH VESTIBULAR DYSFUNCTION. DISCHARGE INSTRUCTIONS: 1. Discharge home. 2. Advised to followup with Dr. Galindo in 10 days in his office. 3. He is to undergo stress echo Sestamibi as an outpatient. 4. Holter to be repeated in 7 to 10 days. MEDICATIONS AT DISCHARGE: Amlodipine 10 mg at night Aspirin 81 mg p.o. daily Atorvastatin 20 mg p.o. daily Meclizine and Valium to be continued NEW PRESCRIPTIONS: Cozaar 50 mg p.o. q.a.m. DISCONTINUED MEDICATIONS: Discontinue Zebeta DIET INSTRUCTIONS: Heart Healthy ACTIVITY: Gradually resume as tolerated. HOSPITAL COURSE: 86-year-old white male was hospitalized with palpitations, fatigue. The patient had PVCs frequent but after the patient was hospitalized, frequency of PVCs was noted to be less. The patient has bradycardia with rate of 40 to 45/min especially during the sleep hours. There was no V-tach, SVT or atrial fibrillation noted. Holter monitor came off at time of discharge, report pending. The patient also had CT scan of the abdomen and pelvis done, report pending at time of discharge. During the stay in the hospital the patient was taken off Bisoprolol. Blood pressure was borderline 130 systolic to 160 systolic. Losartan was added at discharge to be given one every morning. The patient has been taken off beta pepito Bisoprolol. The patient's cardiac markers were negative for any acute myocardial event. T4, TSH was normal. SARS test was negative. UA report pending. Condition at time of discharge stable. TIME SPENT: More than 60 minutes. MTDD
--- NOTE | 2021-05-20 11:36 | PN ---
BILLING 05/16/21 ADMISSION DAY LEVEL 5 05/17/21 FINAL DAY D IN DISCHARGE MTDD
== END 2021-05-17 15:15 | disposition home or self-care (01) | DRG 293 ==
LOC: ED 22:04 → MEDSURG A 05-16 00:01
PROVIDERS: ADMIT Internal Medicine; ATTEND Internal Medicine